=== PATIENT | male | born 1930 | race Caucasian/White ===

== ENCOUNTER → 2020-08-24 | Outpatient (CLI) | payer MEDICARE, OTHER ==
--- NOTE | 2020-08-25 10:49 | RADIOLOGY REPORT (SQ) ---
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 Images reviewed with lung, soft tissue and bone windows. Reconstructed coronal and sagittal MPR and MIP images reviewed. All images stored on PACS. All CT scanners at this facility use dose modulation, iterative reconstruction, and/or weight based d osing when appropriate to reduce radiation dose to as low as reasonably achievable (ALARA). [facility]: Dose Right [facility]: CareDose [facility]: Dose Right [facility]: Teradose 4D [facility]: [place] Live CONTRAST TYPE AND DOSE: 80 mL Omnipaque 300- low osmolar. RENAL FUNCTION: Creatinine 1.7 milligrams/deciliter. LIMITATIONS: None. FINDINGS: LUNGS AND PLEURA: The trachea and main bronchi are patent. There is no acute consolidation , ground-glass opacification, pleural effusion or pneumothorax. NODULES: The calcified nodule in the right upper lobe (57 of series 6), the noncalcified 3 mm nodule in the right middle lobe (image 70 of series 6), the calcified nodule in the right lower lobe (image 104 of series 6), and the subpleural nodule in the superior segment of the left lower lobe (image 44 series 6) are unchanged. There is no new or enlarging pulmonary nodule. HILAR AND MEDIASTINAL STRUCTURES: No adenopathy or mass. HEART AND VASCULAR STRUCTURES: Atherosclerotic calcification of the thoracic aorta, aortic annulus an d coronary arteries. The left ventricle is enlarged. There is no pericardial effusion. HARDWARE: None in the chest. UPPER ABDOMEN: Refer to the separate report of the CT of the abdomen. THYROID AND OTHER SOFT TISSUES: There is a cluster of lymph nodes in the right axilla the largest of which measures 14 mm in long axis diameter (compared to [address] from 02/23/2014. The 11 mm lym ph node in the left axilla (image 20 of series 2) has also decreased in size (from 60 mm on the prior CT. There is no supraclavicular adenopathy. The thyroid gland is homogeneous. BONES: Chronic compression deformity of the T6 vertebral body associated with 50% loss of the vertebr al body height. The number of sclerotic lesions in the thoracic spine and sternum (image 34 of serie s 602) is unchanged. There is no acute fracture. OTHER: No other finding. IMPRESSION: 1. Stable size and number of sclerotic osseous lesions. 2. Stable size and number of calcified and noncalcified pulmonary nodules that measure less than 5 m m. There is no new or enlarging pulmonary nodule. 3. Bilateral axillary lymph nodes that have decreased in size since the previous CT. TECHNICAL DOCUMENTATION: JOB ID: [id number] Quality ID # [id number]: Final reports with documentation of one or more dose reduction techniques (e.g., Au tomated exposure control, adjustment of the mA and/or kV according to patient size, use of iterative reconstruction technique) 2010 [employer]- All Rights Reserved Reading location - IP/workstation name: [email or web address]
--- NOTE | 2020-08-25 11:08 | RADIOLOGY REPORT (SQ) ---
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 TECHNIQUE: CT scan of the abdomen and pelvis performed using helical scanning technique with dynamic intravenous contrast injection. No oral contrast. Images reviewed with lung, soft tissue, and bone windows. Reconstructed coronal and sagittal MPR images reviewed. Delayed images for evaluation of the urinary system also acquired. All images stored on PACS. All CT scanners at this facility use dose modulation, iterative reconstruction, and/or weight based d osing when appropriate to reduce radiation dose to as low as reasonably achievable (ALARA). [facility]: Dose Right [facility]: CareDose [facility]: Dose Right [facility]: Teradose 4D [facility]: [employer] CONTRAST TYPE AND DOSE: Contrast/concentration: Isovue 300.00 mmol/ml; Total Contrast Delivered: 80. 0 ml; Total Saline Delivered: 40.0 ml RENAL FUNCTION: Creatinine 1.7 milligrams/deciliter. RADIATION DOSE: CT Rad equipment meets quality standard of care and radiation dose reduction techniq ues were employed. CTDIvol: 4.6 - 4.6 mGy. DLP: 674 mGy-cm. LIMITATIONS: None. FINDINGS: LOWER CHEST: Refer to the separate report of the CT of the chest. LIVER: The amount of fluid in the right perihepatic space and the nodule anterior to the hepatic dome (image 18 of series 3) are unchanged. There are hypodense lesions scattered throughout the liver th at are unchanged in size and number compared to the CT from 02/24/2020. The portal veins are patent. SPLEEN: The spleen is normal in size. PANCREAS: There is no acute abnormality of the pancreas. GALLBLADDER: The gallbladder is surgically absent. There is no dilatation of the intrahepatic ducts. ADRENAL GLANDS: Unchanged mild diffuse nodular enlargement of the right adrenal gland. 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 There are also several other cortical based lesions that are unchanged in size and number compar ed to the prior CT. There is no solid mass, hydronephrosis, hydroureter or ureterolithiasis. LEFT KIDNEY AND URETER: Stable size and number of hypodense lesions. There is no solid mass, hydrone phrosis, nephrolithiasis, hydroureter or ureterolithiasis. AORTA AND VESSELS: Atherosclerotic calcification of the abdominal aorta and iliac arteries. RETROPERITONEUM: There are enlarged intermediate lumbar, lateral caval, preaortic, lateral aortic, bi lateral common iliac, bilateral external and internal iliac, and bilateral inguinal lymph nodes that have increased in size since the prior CT ; for reference the intermediate lumbar lymph node on image 37 of series 3 measures 2.3 cm in short axis diameter compared to 1.5 cm on the prior CT and the lat eral caval lymph node on image 49 of series 3 measures 4.5 x 3.5 cm compared to 3.1 x 2.6 cm on the p rior CT. BOWEL AND PERITONEAL CAVITY: Status post right hemicolectomy. There is no bowel obstruction, bowel w all thickening or pericolonic/ perienteric inflammation. The 2.2 x 1.6 cm partially calcified nodule in the pelvis, posterior to the sigmoid colon (image 63 of series 3), is unchanged in size. APPENDIX: Surgically absent. PELVIS: The wall of the urinary bladder is diffusely thickened. The prostate gland is heterogeneous. ABDOMINAL WALL: No mass or hernia BONES: Stable in size and number of sclerotic osseous lesions. The mass that surrounds the left L4 t ransverse process is unchanged in size and measures 5.5 x 3.8 cm. OTHER: No other findings. IMPRESSION: Findings as detailed above are consistent with progression of metastatic disease given t he increase in size of retroperitoneal and inguinal adenopathy. TECHNICAL DOCUMENTATION: JOB ID: [id number] Quality ID # [id number]: Final reports with documentation of one or more dose reduction techniques (e.g., Au tomated exposure control, adjustment of the mA and/or kV according to patient size, use of iterative reconstruction technique) 2010 [employer]- All Rights Reserved Reading location - IP/workstation name: [email or web address]
== END ==
LOC: RAD 09:34
PROVIDERS: ATTEND Internal Medicine
DX: C7A.020 Malignant carcinoid tumor of the appendix (principal); R91.8 Other nonspecific abnormal finding of lung field
CPT/HCPCS: 71260; 74177; 82565